=== PATIENT | female | born 1965 | race Caucasian/White ===

== ENCOUNTER 2019-04-14 09:30 | Observation (INO) | payer BC ==
[2019-04-14] MEDS ORDERED: MORPHINE SULFATE 4 MG INJ IV ONE (09:57)
[2019-04-14] MEDS ORDERED: Zofran 4 MG/2 ML VIAL IV ONE (09:57)
[2019-04-14] MEDS ORDERED: Sodium Chloride 0.9% 1000 ML 1,000 ML IV STA ×2 (09:57→10:48)
[2019-04-14] MEDS ORDERED: Zofran 4 MG/2 ML VIAL ONE (09:59)
[2019-04-14] MEDS ORDERED: MORPHINE SULFATE 4 MG INJ ONE (10:00)
[2019-04-14] MEDS ORDERED: Sodium Chloride 0.9% 1000 ML 1,000 ML ONE ×2 (10:00→10:58)
--- NOTE | 2019-04-14 10:02 | ERPHSYRPT ---
- History of Present Illness Time Seen by Provider: 04/14/19 09:53 Historian: patient Physician History: 53-year-old white female arrives with complaint of right middle right middle and right lower quadrant abdominal pain positive nausea she states that she needs to have diarrhea but is unable to symptoms since 2 AM this morning. . Past medical history includes arrhythmia, atrial fibrillation. Past surgical history includes cardiac ablation, hysterectomy, cholecystectomy. Social history social drinker denies tobacco or illicit drug use. Timing/Duration: today (2 AM) Activities at Onset: none Quality: cramping Abdominal Pain Onset Location: RLQ, other (right middle and right lower quadrant ) Pain Radiation: RLQ Severity of Pain-Max: moderate Severity of Pain-Current: moderate Modifying Factors: Improves With: vomiting. Worsens With: analgesics, antacids , breathing, coughing, defecating, eating, exercise, lying down, movement, palpation, rest, urinating, position, walking Associated Symptoms: denies symptoms Previous symptoms: no prior history Allergies/Adverse Reactions: codeine Allergy (Verified 04/14/19 09:40) Penicillins Allergy (Verified 04/14/19 09:40) Sulfa (Sulfonamide Antibiotics) Allergy (Verified 04/14/19 09:40) Home Medications: No Reportable Medications [No Reported Medications] 04/14/19 [History] - Review of Systems Constitutional: No Fever, No Chills Eyes: No Symptoms Ears, Nose, & Throat: No Symptoms Respiratory: No Cough, No Dyspnea Cardiac: No No Symptoms, No Chest Pain, No Edema, No Syncope Abdominal/Gastrointestinal: Abdominal Pain, Nausea, Vomiting, No Diarrhea, No Constipation, No Hematemesis, No Hematochezia, No Melena, No Dysphagia, No Appetite Changes Genitourinary Symptoms: No Dysuria Musculoskeletal: No Back Pain, No Neck Pain Skin: No Rash Neurological: No Dizziness, No Focal Weakness, No Sensory Changes Psychological: No Symptoms Endocrine: No Symptoms All Other Systems: Reviewed and Negative - Past Medical History Pertinent Past Medical History: Yes - Past Surgical History Past Surgical History: Yes Cardiac: Cardiac Catheterization, Other Gastrointestinal: Cholecystectomy Female Surgical History: Hysterectomy - Social History Drug Use: none - Nursing Vital Signs Nursing Vital Signs: Initial Vital Signs Temperature 97.5 F 04/14/19 09:31 Pulse Rate 75 04/14/19 09:31 Respiratory Rate 16 04/14/19 09:31 Blood Pressure 142/86 04/14/19 09:31 O2 Sat by Pulse Oximetry 99 04/14/19 09:31 Pain Scale Pain Intensity 6 - Physical Exam General Appearance: mild distress, alert Eye Exam: PERRL/EOMI, eyes nml inspection Ears, Nose, Throat Exam: normal ENT inspection, pharynx normal, moist mucous membranes Neck Exam: normal inspection, non-tender, supple, full range of motion Respiratory Exam: normal breath sounds, lungs clear, No respiratory distress Cardiovascular Exam: regular rate/rhythm, normal heart sounds Gastrointestinal/Abdomen Exam: soft, normal bowel sounds, tenderness (right lower quadrant tenderness) Back Exam: normal inspection, normal range of motion, No CVA tenderness, No vertebral tenderness Extremity Exam: normal inspection, normal range of motion, pelvis stable Neurologic Exam: alert, oriented x 3, cooperative, beach lifeguard II-XII nml as tested, normal mood/affect, nml cerebellar function, sensation nml, No motor deficits Skin Exam: normal color, warm, dry SpO2 Interpretation: normal (99%) - CT Exams Abdomen/Pelvis CT Interpretation: Discussed w/radiologist (CT abdomen and pelvis with contrast. Impression: 1. 5.4x4.3x5.3 cm oval-shaped, thin walled cystic lesion within the deep right pelvic adnexa measuring +20.5 pulse field units. Might represent a right ovarian cyst. Further evaluation with a pelvic ultrasound may be helpful to confirm are uniformly sonulent internal architecture. 2. No evidence of appendicitis. 3. Some fluid-filled normal diameter small bowel air-fluid within the right hemicolon. Consider ileus versus entero-colitis. 4. Mild retro-cardiac hiatal hernia. 5. Status post cholecystectomy and hysterectomy.) Ordered Tests: Active Orders 24 hr Category Date Time Status IV Insertion STAT Care 04/14/19 09:57 Completed ABDOMEN AND PELVIS W CONTRAST [CT] Stat Exams 04/14/19 10:48 Completed AMYLASE Stat Lab 04/14/19 10:05 Completed CBC W DIFF Stat Lab 04/14/19 10:05 Completed CMP Stat Lab 04/14/19 10:05 Completed LIPASE Stat Lab 04/14/19 10:05 Completed UA W/RFX UR CULTURE Stat Lab 04/14/19 09:59 Completed Medication Summary Generic Name Dose Route Start Last Admin Trade Name Freq PRN Reason Stop Dose Admin Acetaminophen 650 mg 04/14/19 14:42 04/14/19 15:12 Tylenol 325 Mg PO 05/14/19 14:41 650 mg Q4H PRN PRN Administration PAIN AND/OR FEVER Sodium Chloride 1,000 mls @ 100 mls/hr 04/14/19 13:29 04/14/19 15:12 Sodium Chloride 0.9% 1000 Ml IV 05/14/19 13:28 100 mls/hr .Q10H BRENDA Administration Morphine Sulfate 4 mg 04/14/19 13:29 Morphine Sulfate 4 Mg Inj IV 04/19/19 13:28 Q4H PRN PRN PAIN Ondansetron HCl 4 mg 04/14/19 13:29 Zofran 4 Mg/2 Ml Vial IV 05/14/19 13:28 Q6H PRN PRN NAUSEA/VOMITING Discontinued Medications Generic Name Dose Route Start Last Admin Trade Name Freq PRN Reason Stop Dose Admin Sodium Chloride 1,000 mls @ 999 mls/hr 04/14/19 09:57 04/14/19 11:41 Sodium Chloride 0.9% 1000 Ml IV 04/14/19 10:57 Infused .Q1H1M STA Infusion Sodium Chloride Confirm 04/14/19 10:00 Sodium Chloride 0.9% 1000 Ml Administered 04/14/19 10:01 Dose 1,000 mls @ ud .ROUTE .STK-MED ONE Sodium Chloride 1,000 mls @ 999 mls/hr 04/14/19 10:48 04/14/19 12:38 Sodium Chloride 0.9% 1000 Ml IV 04/14/19 11:48 Infused .Q1H1M STA Infusion Sodium Chloride Confirm 04/14/19 10:58 Sodium Chloride 0.9% 1000 Ml Administered 04/14/19 10:59 Dose 1,000 mls @ ud .ROUTE .STK-MED ONE Morphine Sulfate 4 mg 04/14/19 09:57 04/14/19 10:10 Morphine Sulfate 4 Mg Inj IV 04/14/19 09:58 4 mg STAT ONE Administration Morphine Sulfate Confirm 04/14/19 10:00 Morphine Sulfate 4 Mg Inj Administered 04/14/19 10:01 Dose 4 mg .ROUTE .STK-MED ONE Ondansetron HCl 4 mg 04/14/19 09:57 04/14/19 10:10 Zofran 4 Mg/2 Ml Vial IV 04/14/19 09:58 4 mg STAT ONE Administration Ondansetron HCl Confirm 04/14/19 09:59 Zofran 4 Mg/2 Ml Vial Administered 04/14/19 10:00 Dose 4 mg .ROUTE .STK-MED ONE Promethazine HCl 25 mg 04/14/19 12:32 04/14/19 13:10 Phenergan 25 Mg Inj IM 04/14/19 12:33 Not Given STAT ONE Lab/Rad Data: Laboratory Result Diagrams 04/14/19 10:05 04/14/19 10:05 Laboratory Results 04/14/19 04/14/19 04/14/19 Range/Units 10:05 10:05 09:59 WBC 12.6 H (4.0-10.5) K/mm3 RBC 4.63 (4.1-5.4) M/mm3 Hgb 14.3 (12.0-16.0) gm/dl Hct 43.6 (35-47) % MCV 94.2 (78-100) fl MCH 30.9 (26-32) pg MCHC 32.8 (32-36) g/dl RDW 13.3 (11.5-14.0) % Plt Count 240 (150-450) K/mm3 MPV 12.2 H (6-9.5) fl Gran % 81.2 H (36.0-66.0) % Eos # (Auto) 0.03 (0-0.5) Absolute Lymphs (auto) 1.23 (1.0-4.6) Absolute Monos (auto) 1.08 (0.0-1.3) Lymphocytes % 9.8 L (24.0-44.0) % Monocytes % 8.6 (0.0-12.0) % Eosinophils % 0.2 (0.00-5.0) % Basophils % 0.2 (0.0-0.4) % Absolute Granulocytes 10.23 H (1.4-6.9) Basophils # 0.02 (0-0.4) Sodium 141 (137-145) mmol/L Potassium 4.0 (3.5-5.1) mmol/L Chloride 105 (98-107) mmol/L Carbon Dioxide 25 (22-30) mmol/L Anion Gap 15.7 H (5-15) MEQ/L BUN 18 H (7-17) mg/dL Creatinine 0.67 (0.52-1.04) mg/dL Estimated GFR > 60.0 ML/MIN Glucose 109 H (74-106) mg/dL Calcium 9.7 (8.4-10.2) mg/dL Total Bilirubin 0.50 (0.2-1.3) mg/dL AST 30 (14-36) U/L ALT 23 (0-35) U/L Alkaline Phosphatase 53 (38-126) U/L Serum Total Protein 8.0 (6.3-8.2) g/dL Albumin 4.6 (3.5-5.0) g/dL Amylase 104 (30-110) U/L Lipase 232 (23-300) U/L Urine Color YELLOW (YELLOW) Urine Appearance SLIGHTLY CLOUDY (CLEAR) Urine pH 8.0 (5-6) Ur Specific Gilliam 1.020 (1.005-1.025) Urine Protein 30 (Negative) Urine Ketones NEGATIVE (NEGATIVE) Urine Blood NEGATIVE (0-5) Don/ul Urine Nitrite NEGATIVE (NEGATIVE) Urine Bilirubin NEGATIVE (NEGATIVE) Urine Urobilinogen NEGATIVE (0-1) mg/dL Ur Leukocyte Esterase NEGATIVE (NEGATIVE) Urine WBC (Auto) NONE (0-5) /HPF Urine RBC (Auto) 3-5 (0-2) /HPF U Epithel Cells (Auto) NONE (FEW) /HPF Urine Bacteria (Auto) RARE (NEGATIVE) /HPF Urine Mucus (Auto) SLIGHT (NEGATIVE) /HPF Urine Culture Reflexed NO (NO) Urine Glucose NEGATIVE (NEGATIVE) mg/dL - Progress Progress: improved Progress Note: 04/14/19 13:08 Patient with a 5.4 x 4.3 x 5.3 cm oval-shaped thin-walled lesion within the righ deep pelvic adnexa felt to possibly represent a right ovarian cyst by radiologist patient without evidence of appendicitis she she has a fluid-filled normal diameter distal small call and fluid within the right hemicolon consider ileus versus enterocolitis Patient states that she has a history of a ovarian cyst on the right and this is being followed. Patient does have a mild elevated white count of 12.6 urinalysis essentially normal chemistries normal vitals are stable Patient is given IV normal saline 2 L she was also given morphine 4 mg IV as well as Zofran 4 mg IV. She still states that she is feeling nauseous she states she's had an ileus in the past. I've discussed the case with Dr. chun who is functional analyst for the hospital. Will go ahead and place patient in the observation. Diagnosis right lower quadrant pain, vomiting, ileus. Will place patient on IV normal saline, morphine, Zofran as needed. 04/14/19 20:25 - Departure Departure Disposition: Observation Clinical Impression: Right lower quadrant abdominal pain, Ileus Vomiting Qualifiers: Vomiting type: unspecified Vomiting Intractability: non-intractable Nausea presence: with nausea Qualified Code(s): R11.2 - Nausea with vomiting, unspecified Condition: Fair Critical Care Time: No
[2019-04-14 10:08] LABS: BASOPHIL % 0.2 % (0.0-0.4); Basophil (Absolute #) 0.02 (0-0.4); Eosinophil % 0.2 % (0.00-5.0); Eosinophil (Absolute #) 0.03 (0-0.5); Granulocyte Absolute (ANC) 10.23 (1.4-6.9); Granulocytes % 81.2 % (36.0-66.0); Hematocrit 43.6 % (35-47); Hemoglobin 14.3 gm/dl (12.0-16.0); Lymphocyte (Absolute #) 1.23 (1.0-4.6); Lymphocytes % 9.8 % (24.0-44.0); Mean Cell Volume 94.2 fl (78-100); Mean Corpuscular Hemoglobin 30.9 pg (26-32); Mean Corpuscular Hgb Concent. 32.8 g/dl (32-36); Mean Platelet Volume 12.2 fl (6-9.5); Monocyte (Absolute #) 1.08 (0.0-1.3); Monocytes % 8.6 % (0.0-12.0); Platelet Count 240 K/mm3 (150-450); Red Blood Count 4.63 M/mm3 (4.1-5.4); Red Cell Distribution Width 13.3 % (11.5-14.0); White Blood Count 12.6 K/mm3 (4.0-10.5)
[2019-04-14 10:21] LABS: ALBUMIN 4.6 g/dL (3.5-5.0); ALKALINE PHOSPHATASE 53 U/L (38-126); AMYLASE 104 U/L (30-110); ANION GAP 15.7 MEQ/L (5-15); BLOOD UREA NITROGEN 18 mg/dL (7-17); CHLORIDE 105 mmol/L (98-107); Calcium 9.7 mg/dL (8.4-10.2); Carbon Dioxide 25 mmol/L (22-30); Creatinine 1 0.67 mg/dL (0.52-1.04); Glucose 109 mg/dL (74-106); SGOT/AST 30 U/L (14-36); SGPT/ALT 23 U/L (0-35); SODIUM 141 mmol/L (137-145)
[2019-04-14 10:26] LABS: Appearance SLIGHTLY CLOUDY (CLEAR); Bacteria RARE /HPF (NEGATIVE); Bilirubin NEGATIVE (NEGATIVE); Blood NEGATIVE Ery/ul (0-5); Glucose NEGATIVE (NEGATIVE); Ketones NEGATIVE (NEGATIVE); Leukocyte Esterase NEGATIVE (NEGATIVE); Mucus SLIGHT /HPF (NEGATIVE); Nitrite NEGATIVE (NEGATIVE); Protein,Urine Dip 30 (Negative); Urobilinogen NEGATIVE mg/dL (0-1)
[2019-04-14] MEDS ORDERED: Phenergan 25 MG INJ IM ONE (12:32)
--- NOTE | 2019-04-14 12:49 | XRAY ---
Exam: CT of the abdomen and pelvis with IV contrast from 04/14/2019. CTDI: 22.05 Comparison: None. Indication: 53-year-old female with history of right lower quadrant abdominal pain and vomiting, history of prior hysterectomy and cholecystectomy. Technique: Post-IV contrast axial images were obtained through the abdomen and pelvis during automated injection of 80 cc of Isovue-370 contrast material. Reconstructed coronal and sagittal images were created and reviewed. Delayed axial images were obtained as well. No oral contrast was given. Findings: The visualized lung bases appear essentially clear. There is a small retrocardiac hiatal hernia present. The liver and spleen are of normal size. There are a couple tiny low-attenuation densities within the right hepatic lobe on axial image #18 and #23 which are too small to characterize, but may represent tiny hepatic cysts. Minimal prominence of the bile ducts is seen which is not unexpected for a patient who has had a prior cholecystectomy. Minimal fat density is seen adjacent to the anterior aspect of the ligamentum teres. I don't believe this is significant. No splenic mass is seen. The pancreas and adrenal glands appear unremarkable. The kidneys are of normal size and reveal no calculi, hydronephrosis, or solid mass. Both kidneys function on delayed images. No abdominal aortic aneurysm or abnormal retroperitoneal lymphadenopathy is seen. No free intraperitoneal air is seen. The anterior abdominal wall appears intact. Fluid-filled normal diameter mid to distal small bowel is seen. I also see some fluid within nondilated right hemicolon. Scattered stool is seen within the left hemicolon. No bowel distention or bowel wall thickening is seen. The appendix is seen inferior and posterior to the cecum and appears unremarkable. There is no evidence appendicitis. However, within the deep right pelvic adnexa, I note an oval-shaped cystic mass measuring 5.4 cm x 4.3 cm in cross section on axial image #71 of series #4. This measures about 5.3 cm in craniocaudal dimension on coronal image #82. This measures +20.5 Hounsfield units. This may represent a right ovarian cyst, although its attenuation level is slightly high for a simple cyst. Consider further evaluation with a pelvic ultrasound.. The left pelvic adnexa appears unremarkable. There is no free fluid. The uterus is surgically absent. The vaginal cuff appears unremarkable. No enlarged pelvic lymph nodes are seen. The urinary bladder appears unremarkable. The skeleton reveals no acute fracture or aggressive bone lesion. Impression: 1. 5.4 cm x 4.3 cm x 5.3 cm oval-shaped, thin-walled cystic lesion within the deep right pelvic adnexa measuring +20.5 Hounsfield units. This might represent a right ovarian cyst. Further evaluation with a pelvic ultrasound may be helpful to confirm a uniformly sonolucent internal architecture. 2. There is no evidence of appendicitis. 3. I note some fluid-filled normal diameter distal small bowel and fluid within the right hemicolon. Consider an ileus versus enterocolitis. 4. Mild retrocardiac hiatal hernia. 5. Status post cholecystectomy and hysterectomy.
[2019-04-14] MEDS ORDERED: MORPHINE SULFATE 4 MG INJ IV PRN (13:29)
[2019-04-14] MEDS ORDERED: Zofran 4 MG/2 ML VIAL IV PRN (13:29)
[2019-04-14] MEDS: Sodium Chloride 0.9% 1000 ML 1,000 ML IV SCH (15:12)
[2019-04-14] MEDS: TYLENOL 325 MG PO PRN (15:12)
[2019-04-15] MEDS: Sodium Chloride 0.9% 1000 ML 1,000 ML IV SCH (01:24)
[2019-04-15] MEDS: TYLENOL 325 MG PO PRN (02:34)
[2019-04-15 05:42] LABS: BASOPHIL % 0.2 % (0.0-0.4); Basophil (Absolute #) 0.01 (0-0.4); Eosinophil % 0.5 % (0.00-5.0); Eosinophil (Absolute #) 0.03 (0-0.5); Granulocyte Absolute (ANC) 5.12 (1.4-6.9); Hematocrit 37.8 % (35-47); Hemoglobin 12.2 gm/dl (12.0-16.0); Lymphocyte (Absolute #) 0.62 (1.0-4.6); Lymphocytes % 9.8 % (24.0-44.0); Mean Corpuscular Hgb Concent. 32.3 g/dl (32-36); Mean Platelet Volume 12.4 fl (6-9.5); Monocyte (Absolute #) 0.54 (0.0-1.3); Monocytes % 8.5 % (0.0-12.0); Platelet Count 175 K/mm3 (150-450); Red Blood Count 3.98 M/mm3 (4.1-5.4); Red Cell Distribution Width 13.1 % (11.5-14.0); White Blood Count 6.3 K/mm3 (4.0-10.5)
[2019-04-15 06:00] LABS: Mean Corpuscular Hemoglobin 30.6 pg (26-32)
[2019-04-15 06:09] LABS: ALBUMIN 3.5 g/dL (3.5-5.0); ALKALINE PHOSPHATASE 42 U/L (38-126); ANION GAP 11.1 MEQ/L (5-15); BLOOD UREA NITROGEN 9 mg/dL (7-17); CHLORIDE 108 mmol/L (98-107); Calcium 8.4 mg/dL (8.4-10.2); Carbon Dioxide 24 mmol/L (22-30); Creatinine 1 0.56 mg/dL (0.52-1.04); Glucose 97 mg/dL (74-106); Potassium 3.5 mmol/L (3.5-5.1); SGOT/AST 29 U/L (14-36); SGPT/ALT 24 U/L (0-35); SODIUM 139 mmol/L (137-145); Total Protein 6.3 g/dL (6.3-8.2)
[2019-04-15 07:20] VITALS: BP 133/73; PULSE 69; O2SAT 98
--- NOTE | 2019-04-15 07:47 | HP ---
HISTORY OF PRESENT ILLNESS: This is a 53 year-old patient from [place] who was visiting her brother who developed abdominal pain with nausea and vomiting around 0200 hours today. She states she came to the emergency room around 0900 hours. She felt dehydrated. She has history of having an ileus in the past but did not have vomiting with that. She denies any fever. She thinks her last stool was two days ago and was normal for her. She states she usually alternates between constipation and diarrhea. She saw a general surgeon in [place] after her last ileus that was seen on CT scan. She had a colonoscopy when she was 50 and they found one polyp and plans to repeat that when she is 55. She sees a wood type cutter for a right ovarian cyst and has had two ultrasounds of this and checked every six months. She reports she was told it was a simple cyst that the borders were nice and smooth. REVIEW OF SYSTEMS: No hematuria. No blood in her stool. Nausea, vomiting, right lower quadrant abdominal pain. No chest pain. No shortness of breath. MEDICATIONS: Tylenol as needed. ALLERGIES: CODEINE, PENICILLIN, SULFA. PAST MEDICAL HISTORY: Supraventricular tachycardia status post cardiac ablation. She reports also atrial fibrillation from this. All of this happened when she was in her early 30's. Right ovarian cyst. History of ileus. PAST SURGICAL HISTORY: She had hysterectomy, cholecystectomy and she reports that he told her that he also stapled her cecum. 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 She is and her lives at home with her in [place] and a nephew stays there sometimes. She denies any tobacco use. She reports drinking socially. FAMILY HISTORY: Her mother is living and history of transient ischemic attack, diabetes, hypertension, atrial fibrillation with paroxysmal. Her father is and had history of pancreatic cancer. PHYSICAL EXAMINATION: VITAL SIGNS: Temperature current 97.5F, temperature max 97.5F, heart rate 71, respiratory rate 17, blood pressure 134/75, weight 76.2 kg. Oxygen saturation 99% on room air. GENERAL: The patient is a lying in bed a talkative, pleasant lady in no acute distress. CVS: She has a regular rate and rhythm. No murmurs, gallops or rubs. CHEST: Clear to auscultation bilaterally. No crackles or wheezes. ABDOMEN: She has hypoactive bowel sounds. Soft, nontender, nondistended. No guarding. No rigidity. EXTREMITIES: No clubbing, cyanosis or edema. SKIN: Warm, dry, intact and without rashes. LABORATORY DATA AND TESTS: White blood cell count 12,600 with 81% granulocytes, 9.8% lymphocytes, 8.6% monocytes. CMP with glucose 109, BUN 18. UA with 3 to 5 red blood cells, no white blood cells. CT scan of her abdomen and pelvis she has a thin-walled cystic lesion of her right ovary measuring 5.4 x 4.3 x 5.3 cm. No evidence of any appendicitis. Some fluid filled normal diameter distal small bowel and fluid within the right hemicolon. A mild retrocardiac hiatal hernia. Status post cholecystectomy and hysterectomy. Please see the radiologist report for the full dictation. ASSESSMENT AND PLAN: 1) ABDOMINAL PAIN: This is likely due to ileus possible enterocolitis. Will continue with IV fluids, clear liquid diet to be advanced as tolerated tomorrow if she tolerates clear tonight. She has morphine ordered as needed for pain. I also added Tylenol as needed. She will have Zofran for nausea. At this time I do not see any indication to consult the general surgeon. 2) RIGHT OVARIAN CYST: She follows up with this as an outpatient with wood type cutter and she will need to continue to follow with the wood type cutter.
--- NOTE | 2019-04-15 08:39 | PCM.DCORD ---
- Discharge Discharge Date: 04/15/19 Disposition: Home, Self-Care Condition: Good Prescriptions: New Acetaminophen 325 mg [Tylenol 325 mg] 650 mg PO Q4H PRN PRN tablet PRN Reason: Pain And/Or Fever Additional Instructions: Follow up with your primary care doctor in [place] within 1 week. Follow up with your general surgeon in [place]. Follow up with your automatic drill operator in [place]. Return to the ER for abdominal pain, vomiting, or any other concerns. Follow up with: DOCTOR,NO FAMILY [Primary Care Provider] - 1 Week
--- NOTE | 2019-04-15 14:49 | DS ---
DISCHARGE DIAGNOSES: 1) ABDOMINAL PAIN WITH ILEUS NOW RESOLVED. 2) RIGHT OVARIAN CYST. DISCHARGE PHYSICAL EXAMINATION: VITALS: Temperature current 98.1F, temperature max 98.9F, heart rate 69, respiratory rate 18, blood pressure 133/73. Oxygen saturation 98% on room air. GENERAL: The patient is a pleasant talkative lady lying in bed in no acute distress. CVS: She has a regular rate and rhythm. No murmurs, gallops or rubs are appreciated. CHEST: Clear to auscultation bilaterally. No crackles or wheezes. ABDOMEN: Soft, nontender, nondistended with normal bowel sounds. No guarding. No rigidity. EXTREMITIES: No clubbing, cyanosis or edema. SKIN: Warm, dry and intact. HOSPITAL COURSE: 1) ABDOMINAL PAIN WITH ILEUS NOW RESOLVED: The patient was given a clear liquid diet which was advanced and she tolerated the diet well. She did not need any IV pain medicine overnight. She reports she had two diarrheal stools yesterday and is passing gas now. She feels like she can continue to encourage fluids at home and take Tylenol as needed. I offered Zofran for her to have at home but she declined. She will follow up with her primary care doctor and also her general surgeon when she goes back to [place] where she is from. She had CT scan that showed possible enterocolitis versus ileus. Her labs this morning: White blood cell count is 6.3 which is normal. 2) RIGHT OVARIAN CYST: The patient was encouraged to continue to follow up with her superintendent terminal as she has done in the past. DISCHARGE MEDICATIONS: Tylenol as needed. DISPOSITION: The patient was discharged to home. FOLLOW UP: She is to follow up with her general surgeon, superintendent terminal and primary care doctor who are all located in [place]. The patient plans to fly back to [place] tomorrow.
== END 2019-04-15 11:30 | disposition home or self-care (01) ==
LOC: ED 09:30 → MED SURG 13:11
PROVIDERS: ADMIT Internal Medicine; ATTEND Internal Medicine
DX: K56.7 Ileus, unspecified (principal); R10.9 Unspecified abdominal pain; R11.2 Nausea with vomiting, unspecified; N83.201 Unspecified ovarian cyst, right side
CPT/HCPCS: 36000; 36415; 74177; 80053; 81001; 82150; 83690; 85025; 93268; 96360; 96361; 96374; 96375; 99285; J2270; J2405; A9270-GY; G0378